=== PATIENT | female | born 1990 | race Asian ===

== ENCOUNTER 2017-10-12 02:33 | Emergency (ER) | payer OTHER ==
[~2017-10-12] VITALS: Ht 152.4 cm; Wt 6.3 kg
[2017-10-12 02:37] VITALS: BP 150/90
== END 2017-10-12 04:08 | disposition left against medical advice (07) ==
LOC: EMS 02:36
DX: S00.03XA Contusion of scalp, initial encounter (principal); W21.09XA Struck by other hit or thrown ball, initial encounter; Y93.89 Activity, other specified; Y92.89 Other specified places as the place of occurrence of the external cause; Y99.8 Other external cause status
CPT/HCPCS: 99281